=== PATIENT | female | born 1980 ===

== ENCOUNTER 2020-09-30 18:35 | Outpatient (REF) | payer OTHER, SELFPAY ==
[2020-09-30 21:53] LABS: Hemoglobin A1C 4.7 % (<5.7)
[2020-09-30 21:55] LABS: Calculated LDL 109 mg/dL (<100); Cholesterol 204 mg/dL (<200); HDL Cholesterol 68 mg/dL (40-60); Triglyceride 135 mg/dL (<150)
== END 2020-09-30 18:36 | disposition home or self-care (01) ==
LOC: NCHCN 18:35
PROVIDERS: PCP Nurse Practitioner Family; Visit Provider Nurse Practitioner Family
DX: Z12.31 Encounter for screening mammogram for malignant neoplasm of breast (principal); Z13.220 Encounter for screening for lipoid disorders; Z00.00 Encounter for general adult medical examination without abnormal findings
CPT/HCPCS: 80061; 83036

== ENCOUNTER 2023-03-29 14:03 | Outpatient (REF) | payer OTHER, SELFPAY ==
[2023-03-29 21:57] LABS: C Diff PCR Negative (Negative)
[2023-03-30 22:56] LABS: Campylobacter PCR Negative (Negative); Salmonella PCR Negative (Negative); Shiga Toxin PCR Negative (Negative); Shigella/Enteroinvasive Ecoli Negative (Negative)
== END 2023-03-29 14:04 | disposition home or self-care (01) ==
LOC: NCHCN 14:03
PROVIDERS: PCP Nurse Practitioner Family; Visit Provider Nurse Practitioner Family
DX: R19.7 Diarrhea, unspecified (principal)
CPT/HCPCS: 87329; 87493; 87505; 87177

== ENCOUNTER 2024-02-07 19:58 | Outpatient (REF) | payer OTHER, SELFPAY ==
--- NOTE | 2024-02-07 15:45 | PAPFT_PTH ---
PATIENT: Danielle Alvarez LOC: [facility] U#:[id number] AGE/SX: 43/F ROOM: RE02/07/[address]: Koki Kamara : 1980 BED: DIS: 02/07/2024 SPEC #: [id number] RECD: 02/08/24 13:16 STATUS: MILAGRO REQ #: [id number] IRENA: 02/07/24 15:[address]: Koki Linda DEPT: [facility] Cytology RECD BY: Kassie Mar Tissues: 1 - CX/ENDOCX FOR PAP SMEARS Procedures: PAP THIN PREP/[facility] Screening HPV DNA PROBE Comments: [id number] (HPV 16 & 18/45
== END 2024-02-07 19:59 | disposition home or self-care (01) ==
LOC: NCHCN 19:58
PROVIDERS: PCP Nurse Practitioner Family; Visit Provider Nurse Practitioner Family
DX: Z12.4 Encounter for screening for malignant neoplasm of cervix (principal)
CPT/HCPCS: 88142; 87624

== ENCOUNTER 2025-02-08 08:41 | Outpatient (REF) | payer OTHER, SELFPAY ==
[2025-02-08 15:29] LABS: HCT 37.5 % (36.0-46.0); HGB 12.3 g/dL (11.2-15.7); MCH 31.4 pg (27.0-33.0); MCHC 32.8 % (32.0-36.0); MCV 96 fL (80-95); MPV 9.5 fL (8.0-11.0); Platelet Count 289 10^3/uL (130-400); RBC 3.92 10^6/uL (3.93-5.22); RDW 11.7 % (11.7-14.6); RDW-SD 40.6 fL; WBC 6.53 10^3/uL (4.4-10.8)
[2025-02-08 16:08] LABS: ALT 27 U/L (14-59); AST 24 U/L (15-37); Albumin 3.8 g/dL (3.4-5.0); Alkaline Phosphatase 55 U/L (46-116); Anion Gap 8.8 mmol/L (3-11); BUN 8 mg/dL (7-18); Bilirubin, Total 0.5 mg/dL (0.2-1.0); CO2 28.2 mmol/L (21.0-32.0); Calcium 9.0 mg/dL (8.5-10.1); Calculated LDL 158 mg/dL (<100); Chloride 102 mmol/L (98-107); Cholesterol 250 mg/dL (<200); Estimated GFR 113.44 (mL/min/1.73m2); Glucose 91 mg/dL (74-106); HDL Cholesterol 82 mg/dL (>or=50); Potassium 4.0 mmol/L (3.5-5.1); Sodium 139 mmol/L (136-145); TSH 1.52 uIU/mL (0.36-3.74); Total Protein 7.6 g/dL (6.4-8.2); Triglyceride 50 mg/dL (<150)
[2025-02-08 16:54] LABS: Hemoglobin A1C 5.0 % (<5.7)
== END 2025-02-08 08:42 | disposition home or self-care (01) ==
LOC: NCHCN 08:41
PROVIDERS: PCP Nurse Practitioner Family; Visit Provider Nurse Practitioner Family
DX: Z13.0 Encounter for screening for diseases of the blood and blood-forming organs and certain disorders involving the immune mechanism (principal); Z13.6 Encounter for screening for cardiovascular disorders; Z13.29 Encounter for screening for other suspected endocrine disorder; Z13.1 Encounter for screening for diabetes mellitus
CPT/HCPCS: 80053; 80061; 85027; 83036; 84443